=== PATIENT | male | born 1960 | race Caucasian/White ===

== ENCOUNTER 2017-01-25 17:27 | Inpatient (IN) | payer OTHER ==
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
--- NOTE | ~2017-01-25 | DS ---
Discharge Summary [facility] [address] [place]. [address] NAME: JAZZMINE CELESTIN : 58 STATUS : DIS IN PAT#: [id number] AGE: 56 ADM/REG DATE : 01/26/17 MR#: [id number] REPORT SERV DATE: 01/29/17 DICTATED BY: JAROCHO HELM DATE: 01/28/17 REPORT STATUS : Draft TRANSCRIBED BY: MODL DATE: 01/28/17 ADMISSION DATE: 01/26/2017 DISCHARGE DATE: 01/28/2017 REASON FOR ADMISSION: The patient came in with chief complaint of abdominal pain, nausea, and vomiting. HISTORY OF PRESENT ILLNESS: This is a 56-year-old male with a history of cirrhosis and alcoholic cardiomyopathy, who suddenly started having severe abdominal pain the morning of admission. Pain was around his umbilicus and on the right side including his right lower quadrant and right upper quadrant. Pain was continuous without any aggravating or relieving factors. He did have a history of diverticulitis with perforation of bladder fistula requiring reconstruction of the bladder as well as the colostomy. DISCHARGE DIAGNOSES: 1. Abdominal pain, nausea, and vomiting. 2. Cirrhosis with history of alcoholism. 3. History of systolic congestive heart failure secondary to alcoholism. 4. Chronic obstructive pulmonary disease. 5. Hypothyroid. 6. Coronary artery disease with history of stent. 7. Loose stool, C diff negative. HOSPITAL COURSE: Abdominal pain, nausea, and vomiting. The patient's labs on admission, which show a lipase of 179, ALT of 24, AST of 27, alkaline phosphatase of 64, and total bilirubin of 0.9. CT of the abdomen and pelvis was performed, which showed cholelithiasis with a gallbladder having a mildly thickened appearing wall. There does not appear to be significant pericholecystic inflammatory change. Recommend followup ultrasound or HIDA scan. The patient would have a gallbladder ultrasound, which would show gallstones, which remain in neck of the gallbladder despite decubitus position, borderline thickness of the gallbladder wall, mild dilation of common bile duct. All of this could reflect early cholecystitis. HIDA scan should be performed. So then the patient had HIDA scan performed, which was normal. The patient had General Surgery, Dr. Jazzmine Elizabeth consulted as well as GI Dr. Óscar Salomon consulted. The patient was placed on antibiotics on admission. He was placed on IV Zosyn initially and then changed over to oral Ceftin and oral Flagyl for four days total antibiotic coverage. After seeing normal HIDA scan, no surgery was planned for patient. They were hesitant to do surgery in the first place because of the patient's history of cirrhosis and ascites. The patient's symptoms resolved greatly after his four days of hospital stay and GI signed off and wanted to follow up with him outpatient and Surgery also signed off. The patient's TSH was elevated at 6 when checked here in the hospital. He has been started on Synthroid. DISCHARGE CONDITION: Stable. DISCHARGE MEDICATIONS: 1. Neurontin 300 mg p.o. t.i.d. Discharge Summary [address] [address] NAME: JAZZMINE CELESTIN : 58 STATUS : DIS IN PAT#: [id number] AGE: 56 ADM/REG DATE : 01/26/17 MR#: [id number] REPORT SERV DATE: 01/29/17 DICTATED BY: JAROCHO HELM DATE: 01/28/17 REPORT STATUS : Draft TRANSCRIBED BY: YI DATE: 01/28/17 2. Vitamin B12 1000 mcg daily. 3. EzFe 200 mg p.o. daily. 4. Vitamin D3 1000 units p.o. daily. 5. Potassium chloride 20 mg p.o. daily. 6. Folic acid 1 mg p.o. daily. 7. Aldactone 100 mg p.o. daily. 8. Mag-Ox 400 mg p.o. daily. 9. Atorvastatin 40 mg p.o. daily. 10.Ultram 50 mg p.o. daily p.r.n. 11.Aspirin 81 mg p.o. daily. 12.Nitroglycerin sublingual tabs p.r.n. 13.Synthroid 25 mcg p.o. daily. 14.Flagyl 500 mg p.o. q.8 hours x3 more days. 15.Ceftin 500 mg p.o. b.i.d. x3 more days. DISCHARGE PLAN: The patient is discharged home. Follow up with primary care Dr. Konrad Gaytan in one to two weeks and Dr. Óscar Salomon in three to four weeks and complete his three days of Ceftin and Flagyl to complete his seven-day course of antibiotics. TDR/MODL Jarocho Helm APN / [id number] CC: Tom Madrigal M.D. Eric C. Nelson, MD Jay Philippose, M.D.
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
--- NOTE | ~2017-01-25 | CN ---
Consultation Report [facility] [address] [place]. [address] NAME: JAZZMINE CELESTIN : 58 STATUS : ADM IN [facility]#: [id number] AGE: 56 ADM/REG DATE : 01/26/17 MR#: [id number] REPORT SERV DATE: 01/26/17 DICTATED BY: ATILIOJAZZMINEALCIDES PUENTES DATE: 01/26/17 REPORT STATUS : Draft TRANSCRIBED BY: MODL DATE: 01/26/17 SURGERY CONSULTATION NOTE DATE OF CONSULTATION: 01/26/2017 REASON FOR CONSULTATION: Question of acute cholecystitis. HISTORY OF PRESENT ILLNESS: This is a 56-year-old, chronically ill male with cirrhosis, history of alcoholism and tobacco dependence, who now presents with about an 8-hour history of abdominal pain and nausea, vomiting yesterday. This was not clearly postprandial. In any case, the patient's abdominal pain abruptly started and abruptly ceased. He is having absolutely no abdominal pain right now. He denies any fevers or chills. Although, he did have a white blood cell count of nearly 26,000 on admission, that has since normalized. Also, CT scan suggested that he does have gallstones and maybe some mild cholecystitis. An ultrasound was appropriately obtained, which shows his gallbladder wall is completely normal. There is a stone in his gallbladder that may be impacted in the neck. He states that he has known he has gallstones for the last 10 years. MEDICAL HISTORY: Please see the admitting history and physical. SURGICAL HISTORY: Please see the admitting history and physical. SOCIAL HISTORY: Please see the admitting history and physical. FAMILY HISTORY: Please see the admitting history and physical. ALLERGIES: PLEASE SEE THE ADMITTING HISTORY AND PHYSICAL. MEDICATIONS: Please see the admitting history and physical. REVIEW OF SYSTEMS: Please see the admitting history and physical. PHYSICAL EXAMINATION: GENERAL: Alert and oriented x3. No acute distress. HEENT: Normocephalic, atraumatic. NECK: Supple. No carotid bruits are noted. No cervical lymphadenopathy. CHEST: Clear to auscultation bilaterally. HEART: Regular rate and rhythm. No murmurs, rubs, or gallops are auscultated. ABDOMEN: He does have a left-sided colostomy in place. There is absolutely no tenderness whatsoever in his abdomen. He does have two easily reducible hernias, one of which is peristomal, the other which seems to be incisional in the upper midline slightly to the right of midline. EXTREMITIES: Warm and well perfused. Although, he is an amputee. Consultation Report [facility] [id number] [place]. [address] NAME: JAZZMINE CEELSTIN : 58 STATUS : ADM IN PAT#: [id number] AGE: 56 ADM/REG DATE : 01/26/17 MR#: [id number] REPORT SERV DATE: 01/26/17 DICTATED BY: JAZZMINE ELIZABETH DATE: 01/26/17 REPORT STATUS : Draft TRANSCRIBED BY: MODL DATE: 01/26/17 NEURO: No focal neurologic deficits are noted on gross exam. IMAGING: As above. LABS: As above. ASSESSMENT: A 56-year-old male, who did have some abdominal pain, but now has absolutely no abdominal pain. I doubt that he has acute cholecystitis based on the fact that he is not hurting whatsoever, and has absolutely no tenderness, and has a normal white count now. It is possibly asymptomatic cholelithiasis and this could be worked up, and he could be considered for an elective laparoscopic cholecystectomy as an outpatient. There are no surgical issues identified at this time. I will sign off. Please call with any questions. KARONN/YI Jazzmine Elizabeth MD / [id number] CC: Gabe Finch M.D.
[2017-01-25 14:40] LABS: BASOPHILS 0.3 %; BASOPHILS ABSOLUTE 0.07 10/3/uL (0.0-0.16); EOSINOPHILS 0.5 %; EOSINOPHILS ABSOLUTE 0.13 10/3/uL (0.0-0.53); HEMOGLOBIN 15.3 g/dL (13.6-17.8); IMMATURE GRANULOCYTES 0.3 %; IMMATURE GRANULOCYTES ABSOLUTE 0.07 10/3/uL (0.0-0.11); LYMPHOCYTES 8.7 %; LYMPHOCYTES ABSOLUTE 2.19 10/3/uL (0.67-4.30); MEAN CORPUS HGB CONC 35.8 g/dL (32.0-36.0); MEAN CORPUSCULAR HEMOGLOB 33.1 pg (26.0-34.0); MEAN PLATELET VOLUME 9.7 fL (9.2-13.0); MONOCYTES 6.7 %; MONOCYTES ABSOLUTE 1.68 10/3/uL (0.21-1.20); NEUTROPHILS 83.5 %; NEUTROPHILS ABSOLUTE 20.95 10/3/uL (2.02-8.40); PLATELET COUNT 204 10/3/uL (150-400); RBC DISTRIBUTION WIDTH 15.3 % (12.0-16.0)
[2017-01-25 14:46] LABS: ER CBC TAT 0 Hrs 12 Mins; HEMATOCRIT 42.7 % (40.0-51.0); MANUAL DIFF NO %; MEAN CORPUSCULAR VOLUME 92.4 fL (80-100); RED CELL COUNT 4.62 10/6/uL (4.7-6.1); WHITE BLOOD CELLS 25.1 10/3/uL (4.5-10.5)
[2017-01-25 14:51] LABS: ASCORBIC ACID (UR NOT ORDER) NEG (NEG); BILIRUBIN, URINE NEGATIVE (NEG); KETONE, URINE NEGATIVE (NEG); LEUKOCYTE ESTERASE(NOT OR NEG (NEG); NITRITE (URINE) NEG (NEG); WBC (NOT ORDERED) (RFLEX) 1 (0-5)
[2017-01-25 14:56] LABS: CHLORIDE, SERUM 102 MMOL/L (96-112); CREATININE 0.64 MG/DL (0.70-1.30); GFR AFRICAN AMERICAN 126 ML/MIN (>=60); GFR NON AFRICAN AMERICAN 109 ML/MIN (>=60); POTASSIUM, SERUM 4.1 MMOL/L (3.5-5.3); SGOT(AST) 31 U/L (5-40); SGPT(ALT) 23 U/L (5-65); SODIUM, SERUM 137 MMOL/L (135-148)
[2017-01-25 14:57] LABS: A/G RATIO 0.9 (0.7-1.9); ALBUMIN 4.1 G/DL (3.5-5.0); ALKALINE PHOSPHATASE 94 U/L (45-117); BUN (BLOOD UREA NITROGEN) 13 MG/DL (6-23); CALCIUM, SERUM 10.5 MG/DL (8.5-10.4); CO2 (CARBON DIOXIDE) 27 MMOL/L (24-34); GLOBULIN 4.8 G/DL (2.5-4.1); GLUCOSE, SERUM 113 MG/DL (60-99); TOTAL BILIRUBIN 0.9 MG/DL (0-1.2); TOTAL PROTEIN 8.9 G/DL (6.0-8.5)
[2017-01-25 15:14] LABS: BAND NEUTROPHILS 14 %; BASOPHILS 1 %; BASOPHILS ABSOLUTE (CALC) 0.25 10/3/uL (0.0-0.16); ER DIFF TAT 0 Hrs 40 Mins; LYMPHOCYTES 9 %; LYMPHOCYTES ABSOLUTE (CALC) 2.26 10/3/uL (0.67-4.30); MONOCYTES 1 %; MONOCYTES ABSOLUTE (CALC) 0.25 10/3/uL (0.21-1.20); NEUTROPHILS ABSOLUTE (CALC) 22.34 10/3/uL (2.02-8.40); PLATELET ESTIMATE ADQ (ADEQUATE); RBC MORPHOLOGY NORM (NORMAL); SEGMENTED NEUTROPHIL (0) 75 %; TOTAL NUCLEATED CELLS 100
[~2017-01-25 17:27] MED LIST: AUG875 PO; CHANTIX1 PO; COREG PO; COREG3 PO; COREG6 PO; CYANO1000T PO; DELSYM30 MG/5 ML PO; ENULOSE; EZFE 200200 MG PO; FOLIC ACID PO; FOLIC PO; HALF81 PO; K500 PO; KDUR20 PO; LEVOTHYROXIN50 MCG PO; LIPITOR40 PO; LISINOPRIL PO; NEUR300 PO; NICODERM C21 MG/241 TOP; NITROSTAT0.4 MG SL; NORCO1 TA1 PO; P5 PO; PEP20 PO; PLAVIX PO; PRIN2.5 PO; PRIN5 PO; Pepcid PO; SPIRO25 PO; SYN.05 PO; SYNTHROID; VITAMIN B-121000 MC1 SL; VITAMIN D1000 UNI1 PO; VITAMIN D31000 UNIT PO; ZESTRIL5 MG PO
[2017-01-25] MEDS ORDERED: L40 PO (17:28)
[2017-01-25] MEDS ORDERED: FOLIC PO (17:28)
[2017-01-25] MEDS ORDERED: LIPITOR40 PO (17:29)
[2017-01-25] MEDS ORDERED: SPIR100 PO (17:29)
[2017-01-25] MEDS ORDERED: ULTRAM50 PO (17:29)
[2017-01-25] MEDS ORDERED: MAGOX4 PO (17:29)
[2017-01-25] MEDS ORDERED: ASAB PO (17:30)
[2017-01-25] MEDS ORDERED: NITROSTAT0.4 MG SL (17:32)
[2017-01-26 05:35] LABS: BASOPHILS 0.5 %; BASOPHILS ABSOLUTE 0.03 10/3/uL (0.0-0.16); EOSINOPHILS 2.9 %; EOSINOPHILS ABSOLUTE 0.16 10/3/uL (0.0-0.53); IMMATURE GRANULOCYTES 0.2 %; IMMATURE GRANULOCYTES ABSOLUTE 0.01 10/3/uL (0.0-0.11); LYMPHOCYTES 29.2 %; LYMPHOCYTES ABSOLUTE 1.64 10/3/uL (0.67-4.30); MEAN CORPUS HGB CONC 35.2 g/dL (32.0-36.0); MEAN CORPUSCULAR HEMOGLOB 32.3 pg (26.0-34.0); MEAN CORPUSCULAR VOLUME 91.9 fL (80-100); MEAN PLATELET VOLUME 9.9 fL (9.2-13.0); MONOCYTES 11.2 %; MONOCYTES ABSOLUTE 0.63 10/3/uL (0.21-1.20); NEUTROPHILS ABSOLUTE 3.14 10/3/uL (2.02-8.40); PLATELET COUNT 163 10/3/uL (150-400); RBC DISTRIBUTION WIDTH 15.2 % (12.0-16.0)
[2017-01-26 05:40] LABS: HEMOGLOBIN 11.6 g/dL (13.6-17.8); MANUAL DIFF NO %; RED CELL COUNT 3.59 10/6/uL (4.7-6.1); WHITE BLOOD CELLS 5.6 10/3/uL (4.5-10.5)
[2017-01-26 05:43] LABS: CHLORIDE, SERUM 111 MMOL/L (96-112); CO2 (CARBON DIOXIDE) 25 MMOL/L (24-34); CREATININE 0.47 MG/DL (0.70-1.30); GFR AFRICAN AMERICAN 143 ML/MIN (>=60); GFR NON AFRICAN AMERICAN 123 ML/MIN (>=60); GLUCOSE, SERUM 93 MG/DL (60-99); PHOSPHORUS, SERUM 2.5 MG/DL (2.5-4.5); POTASSIUM, SERUM 3.8 MMOL/L (3.5-5.3)
[2017-01-26 05:47] LABS: BUN (BLOOD UREA NITROGEN) 9 MG/DL (6-23); CALCIUM, SERUM 9.4 MG/DL (8.5-10.4); SODIUM, SERUM 146 MMOL/L (135-148)
[2017-01-26 07:04] LABS: PROCALCITONIN 0.06 ng/mL (<0.5)
[2017-01-27 05:38] LABS: INTERNATIONAL NORMAL RATI 1.3 UNITS (-); PROTIME (NOT ORD) 15.7 SEC (12.0-14.5)
[2017-01-27 05:39] LABS: ALBUMIN 3.5 G/DL (3.5-5.0); BUN (BLOOD UREA NITROGEN) 10 MG/DL (6-23); CALCIUM, SERUM 9.1 MG/DL (8.5-10.4); CHLORIDE, SERUM 111 MMOL/L (96-112); CO2 (CARBON DIOXIDE) 21 MMOL/L (24-34); CREATININE 0.49 MG/DL (0.70-1.30); GFR AFRICAN AMERICAN 141 ML/MIN (>=60); GFR NON AFRICAN AMERICAN 121 ML/MIN (>=60); GLUCOSE, SERUM 88 MG/DL (60-99); POTASSIUM, SERUM 3.9 MMOL/L (3.5-5.3); SGOT(AST) 27 U/L (5-40); SGPT(ALT) 25 U/L (5-65); SODIUM, SERUM 141 MMOL/L (135-148); TOTAL BILIRUBIN 0.9 MG/DL (0-1.2)
[2017-01-27 05:40] LABS: ALKALINE PHOSPHATASE 64 U/L (45-117); GLOBULIN 3.6 G/DL (2.5-4.1); TOTAL PROTEIN 7.1 G/DL (6.0-8.5)
[2017-01-27 05:42] LABS: BASOPHILS 1.6 %; BASOPHILS ABSOLUTE 0.09 10/3/uL (0.0-0.16); EOSINOPHILS 4.3 %; EOSINOPHILS ABSOLUTE 0.24 10/3/uL (0.0-0.53); HEMATOCRIT 34.9 % (40.0-51.0); HEMOGLOBIN 12.1 g/dL (13.6-17.8); IMMATURE GRANULOCYTES 0.2 %; IMMATURE GRANULOCYTES ABSOLUTE 0.01 10/3/uL (0.0-0.11); LYMPHOCYTES 40.2 %; LYMPHOCYTES ABSOLUTE 2.22 10/3/uL (0.67-4.30); MEAN CORPUS HGB CONC 34.7 g/dL (32.0-36.0); MEAN CORPUSCULAR HEMOGLOB 32.6 pg (26.0-34.0); MEAN CORPUSCULAR VOLUME 94.1 fL (80-100); MEAN PLATELET VOLUME 10.1 fL (9.2-13.0); MONOCYTES 7.8 %; MONOCYTES ABSOLUTE 0.43 10/3/uL (0.21-1.20); NEUTROPHILS 45.9 %; NEUTROPHILS ABSOLUTE 2.53 10/3/uL (2.02-8.40); PLATELET COUNT 157 10/3/uL (150-400); RBC DISTRIBUTION WIDTH 15.3 % (12.0-16.0); RED CELL COUNT 3.71 10/6/uL (4.7-6.1); WHITE BLOOD CELLS 5.5 10/3/uL (4.5-10.5)
[2017-01-27 05:46] LABS: MANUAL DIFF NO %
[2017-01-28 06:52] LABS: BASOPHILS 0.9 %; BASOPHILS ABSOLUTE 0.06 10/3/uL (0.0-0.16); EOSINOPHILS 4.6 %; HEMOGLOBIN 12.5 g/dL (13.6-17.8); IMMATURE GRANULOCYTES 0.2 %; IMMATURE GRANULOCYTES ABSOLUTE 0.01 10/3/uL (0.0-0.11); LYMPHOCYTES ABSOLUTE 2.47 10/3/uL (0.67-4.30); MEAN CORPUS HGB CONC 34.7 g/dL (32.0-36.0); MEAN CORPUSCULAR VOLUME 92.1 fL (80-100); MEAN PLATELET VOLUME 10.3 fL (9.2-13.0); MONOCYTES ABSOLUTE 0.52 10/3/uL (0.21-1.20); NEUTROPHILS 48.3 %; NEUTROPHILS ABSOLUTE 3.14 10/3/uL (2.02-8.40); PLATELET COUNT 171 10/3/uL (150-400); RED CELL COUNT 3.91 10/6/uL (4.7-6.1); WHITE BLOOD CELLS 6.5 10/3/uL (4.5-10.5)
[2017-01-28 06:53] LABS: MANUAL DIFF NO %
[2017-01-28 07:32] LABS: % IRON SAT 25 % (20-50); A/G RATIO 0.9 (0.7-1.9); ALBUMIN 3.5 G/DL (3.5-5.0); ALKALINE PHOSPHATASE 64 U/L (45-117); BUN (BLOOD UREA NITROGEN) 12 MG/DL (6-23); CALCIUM, SERUM 9.3 MG/DL (8.5-10.4); CHLORIDE, SERUM 110 MMOL/L (96-112); CHOLESTEROL 137 MG/DL (< 200); CO2 (CARBON DIOXIDE) 21 MMOL/L (24-34); CREATININE 0.42 MG/DL (0.70-1.30); FERRITIN 123 NG/ML (26-388); GFR AFRICAN AMERICAN 150 ML/MIN (>=60); GFR NON AFRICAN AMERICAN 129 ML/MIN (>=60); GLOBULIN 3.9 G/DL (2.5-4.1); GLUCOSE, SERUM 99 MG/DL (60-99); IRON BINDING CAPACITY 282 MCG/DL (250-450); IRON, SERUM 71 MCG/DL (35-150); POTASSIUM, SERUM 3.9 MMOL/L (3.5-5.3); SGOT(AST) 27 U/L (5-40); SGPT(ALT) 24 U/L (5-65); SODIUM, SERUM 141 MMOL/L (135-148); TOTAL BILIRUBIN 0.5 MG/DL (0-1.2); TOTAL PROTEIN 7.4 G/DL (6.0-8.5); TRIGLYCERIDE 79 MG/DL (< 150)
[2017-01-28 07:33] LABS: CHOL/HDL RATIO(NOT ORDER) 3.7 (0-5); HDL CHOLESTEROL 37 MG/DL (> 39); LDL CHOLESTEROL 85 MG/DL (< 130); NON-HDL CHOLESTEROL 100 MG/DL (< 160)
[2017-01-28] MEDS ORDERED: SYN.025B PO (16:51)
[2017-01-28] MEDS ORDERED: FLAG500TAB PO (16:51)
[2017-01-28] MEDS ORDERED: CEFT5 PO (16:52)
== END 2017-01-28 18:02 | disposition home or self-care (01) | DRG 445 ==
LOC: ER 17:27 → IMCU 01-26 01:33 → 4SO 01-26 12:14
PROVIDERS: Emergency Medicine; Internal Medicine; Internal Medicine Pulmonary Disease
DX: K80.18 Calculus of gallbladder with other cholecystitis without obstruction (principal); I50.22 Chronic systolic (congestive) heart failure; I95.9 Hypotension, unspecified; I42.6 Alcoholic cardiomyopathy; R18.8 Other ascites; K70.30 Alcoholic cirrhosis of liver without ascites; Z89.611 Acquired absence of right leg above knee; J44.9 Chronic obstructive pulmonary disease, unspecified; E03.9 Hypothyroidism, unspecified; I25.10 Atherosclerotic heart disease of native coronary artery without angina pectoris; Z95.5 Presence of coronary angioplasty implant and graft; F10.21 Alcohol dependence, in remission; Z93.3 Colostomy status; K43.5 Parastomal hernia without obstruction or gangrene; M81.0 Age-related osteoporosis without current pathological fracture; K57.90 Diverticulosis of intestine, part unspecified, without perforation or abscess without bleeding
CPT/HCPCS: 71020; 74176; 76705; 78227; 80048; 80053; 80061; 81001; 82607; 82728; 83540; 83550; 83605; 83690; 83735; 84100; 84145; 84443; 85025; 85610; 87040; 87493; 87493-59; 93306; 99285; A9270-GY; A9537; J2543; J2805; P9047